=== PATIENT | female | born 1990 | race Caucasian/White ===

== ENCOUNTER 2016-07-30 23:58 | Inpatient (IN) | payer OTHER ==
[~2016-07-30] VITALS: Ht 157.5 cm; Wt 76.2 kg
[2016-07-31] VITALS (13 sets, daily range): BP systolic 118–147; BP diastolic 60–97
[2016-07-31] MEDS ORDERED: PRENATAL TABLE1 EACH PO (00:40)
[2016-07-31 01:37] LABS: EOSINOPHIL (%) 0.1 % (0-5); HEMATOCRIT 36.1 % (36.0-46.0); IMMATURE GRANULOCYTE (%) 0.6 % (0.0-0.7); IMMATURE GRANULOCYTE COUNT 0.1 K/uL; INSTRUMENT ABS NEUTROPHIL CT 15.8 K/uL; LYMPHOCYTE COUNT 1.4 K/uL (1.0-2.8); MCH 28.9 PG (29.0-34.0); MCHC 33.8 G/DL (30.0-36.0); MCV 85.5 FL (83-99); MEAN PLAT.VOLUME 12.7 uM^3 (9.5-12.4); MONOCYTE (%) 4.5 % (3-12); MONOCYTE COUNT 0.8 K/uL (0-0.8); NEUTROPHIL (%) 87.1 % (45-76); NEUTROPHIL COUNT 15.8 K/uL (1.8-6.4); PLATELET COUNT 208 K/uL (156-360); RBC DIS.WIDTH-SD 39.8 % (39-53); RED BLOOD COUNT 4.22 M/uL (3.80-5.20); WHITE BLOOD COUNT 18.2 K/uL (4.1-10.2)
[2016-07-31] MEDS ORDERED: IBUPROFEN800 MG PO (04:23)
[2016-07-31] MEDS ORDERED: VITAMIN D31000 UNIT PO (18:15)
[2016-07-31] MEDS ORDERED: ASCORBIC ACID500 M3 PO (18:15)
[2016-07-31] MEDS ORDERED: LEVOTHYROXINE88 MCG PO (18:20)
[2016-07-31] MEDS ORDERED: LEVO-T88 MCG PO (18:21)
[2016-07-31] MEDS ORDERED: ZANTAC150 MG PO (18:22)
[2016-08-01 07:48] VITALS: BP 116/81
[2016-08-01 15:31] VITALS: BP 131/74
[2016-08-01 23:00] VITALS: BP 120/76
[2016-08-02 07:15] VITALS: BP 126/75
[2016-08-02] MEDS ORDERED: IBUPROFEN800 MG PO (10:30)
== END 2016-08-02 13:22 | disposition home or self-care (01) | DRG 775 ==
LOC: LDRP-OP 23:58 → 2WEST 23:59 → LDRP-OP 09-11 14:56
PROVIDERS: Midwife
PROC: 10E0XZZ Delivery of Products of Conception, External Approach (ICD-10-PCS; principal; 2016-07-31)
DX: O70.0 First degree perineal laceration during delivery (principal); Z3A.38 38 weeks gestation of pregnancy; Z37.0 Single live birth
CPT/HCPCS: 85025; G0378; J0595